=== PATIENT | female | born 1990 | race Caucasian/White ===

== ENCOUNTER 2016-09-29 16:00 | Emergency (ER) | payer MEDICAID ==
[~2016-09-29] VITALS: Ht 160 cm; Wt 100.0 kg
[~2016-09-29 16:00] MED LIST: IBUPROFEN600 MG PO; LORTAB 5/3255 MG PO; PRENATAL1 TA1 PO; TUMS500 MG PO; VALACYCLOVIR500 MG PO; ZOFRAN4 MG/TAB PO
[2016-09-29] MEDS ORDERED: ZOLOFT25 MG PO (16:18)
[2016-09-29] MEDS ORDERED: ZITHROMAX250 MG PO (16:54)
[2016-09-29 17:14] VITALS: BP 129/89
== END 2016-09-29 17:24 | disposition home or self-care (01) | DRG 153 ==
LOC: ED 16:00
DX: J06.9 Acute upper respiratory infection, unspecified (principal); F17.210 Nicotine dependence, cigarettes, uncomplicated

== ENCOUNTER 2016-11-16 18:38 | Emergency (ER) | payer MEDICAID ==
[~2016-11-16] VITALS: Ht 160 cm; Wt 101.2 kg
[~2016-11-16 18:38] MED LIST changes: +ZITHROMAX250 MG PO; +ZOLOFT25 MG PO
[2016-11-16] MEDS ORDERED: SERTRALINE HCL50 MG PO (18:58)
[2016-11-16] MEDS ORDERED: Levaquin PO (19:56)
[2016-11-16 20:05] VITALS: BP 132/87
== END 2016-11-16 20:05 | disposition home or self-care (01) | DRG 153 ==
LOC: ED 18:38
DX: J02.9 Acute pharyngitis, unspecified (principal); F17.210 Nicotine dependence, cigarettes, uncomplicated; R50.9 Fever, unspecified

== ENCOUNTER 2019-01-27 11:11 | Emergency (ER) | payer SELFPAY ==
[~2019-01-27] VITALS: Ht 160 cm; Wt 97.7 kg
[~2019-01-27 11:11] MED LIST changes: +Levaquin PO; +SERTRALINE HCL50 MG PO
[2019-01-27 12:50] VITALS: BP 146/84
== END 2019-01-27 12:50 | disposition home or self-care (01) | DRG 866 ==
LOC: ED 11:11
DX: B34.9 Viral infection, unspecified (principal); F17.210 Nicotine dependence, cigarettes, uncomplicated

== ENCOUNTER 2019-02-05 08:12 | Emergency (ER) | payer OTHER ==
[~2019-02-05] VITALS: Ht 160 cm; Wt 97.7 kg
[2019-02-05 08:42] LABS: IMMATURE GRANULOCYTES 0.4 % (0.0-5.0); MEAN CORPUSCULAR HGB 26.5 pG CALC (26.0-32.0); MEAN CORPUSCULAR HGB CONC 32.8 g/L CALC (32.0-36.0); NEUT# 4.09 thou/uL (2.00-7.15); RED BLOOD COUNT 4.61 mill/uL (4.20-5.60); RED CELL DISTRI WIDTH 15.3 % (11.5-15.5)
[2019-02-05 08:44] LABS: HEMATOCRIT 37.2 % (37.0-47.0); HEMOGLOBIN 12.2 g/dl (12.0-16.0); MEAN CELL VOLUME 80.7 fL CALC (80.0-100.0)
[2019-02-05] MEDS ORDERED: VENTOLIN HFA IN (09:51)
[2019-02-05 09:56] VITALS: BP 134/67
== END 2019-02-05 10:01 | disposition home or self-care (01) ==
LOC: ED 08:12
PROVIDERS: Family Medicine
DX: B34.9 Viral infection, unspecified (principal); J98.01 Acute bronchospasm; F17.200 Nicotine dependence, unspecified, uncomplicated

== ENCOUNTER 2019-03-21 12:11 | Emergency (ER) | payer SELFPAY ==
[~2019-03-21] VITALS: Ht 160 cm; Wt 98.0 kg
[~2019-03-21 12:11] MED LIST changes: +VENTOLIN HFA IN
[2019-03-21] MEDS ORDERED: KEFLEX500 M1 PO (12:38)
[2019-03-21] MEDS ORDERED: BACTRIM DS1 TAB PO (12:38)
[2019-03-21 12:59] VITALS: BP 150/81
== END 2019-03-21 13:05 | disposition home or self-care (01) | DRG 761 ==
LOC: ED 12:11
DX: N75.0 Cyst of Bartholin's gland (principal); F17.210 Nicotine dependence, cigarettes, uncomplicated

== ENCOUNTER 2019-03-25 09:20 | Emergency (ER) | payer OTHER ==
[~2019-03-25] VITALS: Ht 160 cm; Wt 98.0 kg
[~2019-03-25 09:20] MED LIST changes: +BACTRIM DS1 TAB PO; +KEFLEX500 M1 PO
[2019-03-25] MEDS ORDERED: VICODIN1 TA1 PO (10:40)
[2019-03-25 11:11] VITALS: BP 132/64
== END 2019-03-25 11:11 | disposition home or self-care (01) ==
LOC: ED 09:20
DX: Z48.01 Encounter for change or removal of surgical wound dressing (principal); F17.210 Nicotine dependence, cigarettes, uncomplicated

== ENCOUNTER 2019-07-14 | Emergency (ER) | payer MEDICAID ==
[~2019-07-14] MED LIST changes: +VICODIN1 TA1 PO
[2019-07-14 11:14] LABS: URINE BILIRUBIN - DIPSTICK NEGATIVE (NEGATIVE); URINE BLOOD DIPSTICK TRACE-INTACT (NEGATIVE); URINE COLOR YELLOW; URINE GLUCOSE - DIPSTICK NEGATIVE (NEGATIVE); URINE KETONE NEGATIVE (NEGATIVE); URINE LEUK ESTERASE NEGATIVE (NEGATIVE); URINE NITRITE - DIPSTICK NEGATIVE (Negative); URINE PROTEIN - DIPSTICK NEGATIVE (NEG-TRACE); URINE SPECIFIC GRAVITY 1.015; URINE UROBILINOGEN - DIPSTICK 0.2 E.U./dL (0.2)
[2019-07-14] MEDS ORDERED: FLEXERIL PO (12:26)
[2019-07-14] MEDS ORDERED: ULTRAM50 M1 PO (12:26)
== END 2019-07-14 12:30 | disposition home or self-care (01) ==
PROVIDERS: Emergency Medicine
DX: S33.5XXA Sprain of ligaments of lumbar spine, initial encounter (principal); F17.210 Nicotine dependence, cigarettes, uncomplicated; X58.XXXA Exposure to other specified factors, initial encounter

== ENCOUNTER 2019-08-05 17:07 | Emergency (ER) | payer SELFPAY ==
[~2019-08-05 17:07] MED LIST changes: +FLEXERIL PO; +ULTRAM50 M1 PO
[2019-08-05] MEDS ORDERED: ZPAK PO (17:49)
[2019-08-05 18:10] VITALS: BP 133/81
== END 2019-08-05 18:10 | disposition home or self-care (01) | DRG 153 ==
LOC: ED 17:07
DX: J02.9 Acute pharyngitis, unspecified (principal); F17.210 Nicotine dependence, cigarettes, uncomplicated